=== PATIENT | male | born 1970 | race Caucasian/White ===

== ENCOUNTER 2020-04-20 21:28 | Emergency (ER) | payer OTHER ==
[~2020-04-20] VITALS: Ht 188 cm; Wt 108.9 kg
[2020-04-20] MEDS ORDERED: ANTACID PO (21:48)
[2020-04-20 22:46] LABS: HEMATOCRIT 44.5 % (42.0-52.0); HEMOGLOBIN 14.9 gm/dL (14.0-18.0); MCH 30.2 pg (26.0-34.0); MCHC 33.5 g/dL (28.0-37.0); MCV 90.1 fL (80.0-100.0); MPV 8.4 fl. (7.2-11.1); NUCLEATED RBCS 0 /100WBC; PLATELET COUNT* 261 thou/uL (150-400); RBC 4.93 mil/uL (4.50-6.00); RDW-CV 13.6 % (10.5-14.5); WBC 20.8 thou/uL (4.0-11.0)
[2020-04-20 22:55] LABS: CALCIUM 8.5 mg/dL (8.5-10.1); CREATININE 1.5 mg/dL (0.6-1.3); POTASSIUM 3.9 mmol/L (3.5-5.1)
[2020-04-20 23:00] LABS: ALBUMIN 3.7 g/dL (3.4-5.0); TOTAL BILIRUBIN 0.4 mg/dL (<0.1-1.0); TOTAL PROTEIN 7.6 g/dL (6.4-8.2)
[2020-04-20 23:30] LABS: ABSOLUTE LYMPHOCYTES 1.5 thou/uL (0.8-5.3); ABSOLUTE MONOCYTES 2.7 thou/uL (0.0-1.2); ABSOLUTE NEUTROPHILS 16.6 thou/uL (1.6-8.1); PLATELET ESTIMATE ADEQUATE
[2020-04-21 01:00] VITALS: BP 136/72
--- NOTE | 2020-04-21 09:37 | EKG ---
[place] [address] ELECTROCARDIOGRAM REPORT Name: EMDAVID Perez Room: [facility]#: [id number] Admission: 04/20/20 Attend Phys: Discharge: 04/21/20 Date of : 66 Date of Service: 04/20/202240 Report #: [id number] THIS REPORT FOR: //name// [facility] ED Test Date: 2020-04-20 Test Time: 22:41:22 Pat Name: DAVID EM Department: Room: Gender: Double Cutter: [place] : 1970 Requested By: Samuel Zuleta Order Number: [id number] MD: Mukund Godinez Measurements Intervals [place] Rate: 92 P: 42 OK: 152 QRS: -25 QRSD: 110 T: 63 QT: 366 QTc: 453 Interpretive Statements Sinus rhythm Borderline left axis deviation Delayed R wave progression No previous ECG available for comparison Electronically Signed On 04-21-2020 9:37:29 [employer]AIL [employer]ICING COORDINATOR by Mukund Godinez [email or web address] <ELECTRONICALLY SIGNED> By: Mukund Godinez MD, [facility] 04/21/20 0937 40 40 Mukund Godinez MD, FACC /EPI
== END 2020-04-21 01:00 | disposition short-term general hospital (02) ==
LOC: M.ERS 21:28
PROVIDERS: Emergency Medicine Emergency Medical Services
DX: S06.6X0A Traumatic subarachnoid hemorrhage without loss of consciousness, initial encounter (principal); Z20.828 Contact with and (suspected) exposure to other viral communicable diseases; M25.552 Pain in left hip; M25.512 Pain in left shoulder; W22.8XXA Striking against or struck by other objects, initial encounter; Y93.89 Activity, other specified; Y92.89 Other specified places as the place of occurrence of the external cause; Y99.8 Other external cause status